=== PATIENT | male | born 1940 | race Caucasian/White ===

== ENCOUNTER 2018-04-22 15:48 | Emergency (ER) | payer OTHER ==
[~2018-04-22] VITALS: Ht 175.3 cm; Wt 104.3 kg
[~2018-04-22 15:48] MED LIST: ASA81 PO; GABA-531 PO; GLU500 PO; INSU100V9 SUBCUT; LISI10TA5 PO
[2018-04-22 16:16] VITALS: BP_SYST 154
[2018-04-22] MEDS ORDERED: HYDROcodone/ACETAMIN 5-325 MG TAB (NORCO/ VICODIN) PO ONE (16:45)
[2018-04-22 17:16] LABS: BASOPHILS # (AUTO) 0.1 K/uL (0.0-0.2); BASOPHILS % (AUTO) 0.6 % (0.0-2.0); EOSINOPHILS # (AUTO) 0.1 K/uL (0.0-0.4); EOSINOPHILS % (AUTO) 0.8 % (0.0-4.0); HEMATOCRIT 42.9 % (36-54); HEMOGLOBIN 13.8 g/dL (14.0-18.0); LYMPHOCYTES # (AUTO) 1.1 K/uL (1.0-5.5); LYMPHOCYTES % (AUTO) 11.5 % (20.5-51.5); MEAN CORPUSCULAR HEMOGLOBIN 30 pg (27-31); MEAN CORPUSCULAR HGB CONC 32 % (32-36); MEAN CORPUSCULAR VOLUME 93 fL (79.0-98.0); MONOCYTES # (AUTO) 0.6 K/uL (0.0-1.0); MONOCYTES % (AUTO) 6.4 % (1.7-9.3); NEUTROPHILS # (AUTO) 8.1 K/uL (1.8-7.7); NEUTROPHILS % (AUTO) 80.7 % (40.0-70.0); PLATELET COUNT (AUTO) 324 K/uL (130-430); RED BLOOD CELL COUNT(AUTO) 4.59 MIL/uL (4.2-6.2); RED CELL DISTRIBUTION WIDTH 13.4 % (9.0-15.0)
[2018-04-22 17:26] LABS: ANION GAP 10 (5-15); CALCIUM 9.2 mg/dL (8.4-11.0); CHLORIDE 95 mmol/L (98-107); CREATININE 1.18 mg/dL (0.55-1.30); GLUCOSE 328 mg/dL (70-99); POTASSIUM 4.5 mmol/L (3.5-5.1); SODIUM SERUM 130 mmol/L (136-145); UREA NITROGEN, BLOOD 24 mg/dL (8-21)
[2018-04-22] MEDS ORDERED: NACL 0.9% 1,000 ML IV ONE (17:30)
[2018-04-22 17:31] LABS: ALANINE AMINOTRANSFERASE 13 U/L (12-78); ALBUMIN 3.5 g/dL (3.4-4.8); ASPARTATE AMINOTRANSFERASE 10 U/L (10-37); TOTAL BILIRUBIN 0.5 mg/dL (0.0-1.0)
[2018-04-22] MEDS ORDERED: CYCLOBENZAPRINE HCL 10 MG TABLET (FLEXERIL) PO ONE (17:45)
[2018-04-22] MEDS ORDERED: IOHEXOL 100 ML IV ONE (18:35)
[2018-04-22 20:05] VITALS: BP_SYST 139
== END 2018-04-22 20:05 | disposition home or self-care (01) ==
LOC: SED 15:48
DX: S16.1XXA Strain of muscle, fascia and tendon at neck level, initial encounter (principal); E11.9 Type 2 diabetes mellitus without complications; Z88.0 Allergy status to penicillin; Z79.899 Other long term (current) drug therapy; X50.9XXA Other and unspecified overexertion or strenuous movements or postures, initial encounter; Y93.89 Activity, other specified; Y92.89 Other specified places as the place of occurrence of the external cause; Y99.8 Other external cause status
CPT/HCPCS: 36415; 70450; 70491; 80053; 82962; 85025; 99284; J7030; Q9967

== ENCOUNTER 2020-05-07 06:13 | Emergency (ER) | payer OTHER, SELFPAY ==
[~2020-05-07] VITALS: Ht 175.3 cm; Wt 104.3 kg
[2020-05-07 06:15] VITALS: BP_SYST 120
--- NOTE | 2020-05-07 06:18 | NUR ---
Patient to ER bed [address] to gown for evaluation. Side rails up. Report given to Matheus WYATT.
--- NOTE | 2020-05-07 06:21 | NUR ---
recieved pt. In [facility] with side rails up. Alert and oriented. Able to make needs known.
--- NOTE | 2020-05-07 07:09 | NUR ---
ER at bedside examining patient.
--- NOTE | 2020-05-07 07:10 | NUR ---
REPORT RECEIVED FROM DELVIN RN FOR CONTINUING CARE
[2020-05-07] MEDS ORDERED: NACL 0.9% 1,000 ML IV ONE (07:15)
--- NOTE | 2020-05-07 07:19 | NUR ---
PT BIBA SQ 64 FROM HOME C/O HIGH BLOOD SUGAR.+GEN WEAKNESS. ACCUCHECK UPON ARRIVAL 346. PT IS AAOX4, V/S STABLE
--- NOTE | 2020-05-07 07:20 | NUR ---
Patient transported to XRAY via WC , accompanied by STAFF.
--- NOTE | 2020-05-07 07:50 | NUR ---
# 20 gauge angiocath placed to LFA. Use of asceptic technique. Opsite placed over site. Blood return noted. Flushed with 10 cc of normal saline. No evidence of infiltration noted. Patient tolerated well.
[2020-05-07] MEDS ORDERED: DIPHENHYDRAMINE INJ 50 MG/ML VIAL IVP ONE (08:00)
[2020-05-07] MEDS ORDERED: methylPREDNISolone SOD SUCC/PF 62.5 MG/ML VIAL IVP ONE (08:00)
[2020-05-07 08:43] LABS: BASOPHILS % (AUTO) 0.3 % (0.0-2.0); EOSINOPHILS # (AUTO) 0.2 K/uL (0.0-0.4); EOSINOPHILS % (AUTO) 1.3 % (0.0-4.0); HEMATOCRIT 39.2 % (36-54); HEMOGLOBIN 13.3 g/dL (14.0-18.0); LYMPHOCYTES # (AUTO) 0.3 K/uL (1.0-5.5); LYMPHOCYTES % (AUTO) 1.8 % (20.5-51.5); MEAN CORPUSCULAR HEMOGLOBIN 31 pg (27-31); MEAN CORPUSCULAR HGB CONC 34 % (32-36); MEAN CORPUSCULAR VOLUME 91 fL (79.0-98.0); MONOCYTES # (AUTO) 0.8 K/uL (0.0-1.0); MONOCYTES % (AUTO) 4.3 % (1.7-9.3); NEUTROPHILS # (AUTO) 16.1 K/uL (1.8-7.7); NEUTROPHILS % (AUTO) 92.3 % (40.0-70.0); PLATELET COUNT (AUTO) 270 K/uL (130-430); RED CELL DISTRIBUTION WIDTH 14.1 % (9.0-15.0); WHITE BLOOD COUNT (AUTO) 17.5 K/uL (4.8-10.8)
[2020-05-07 08:45] LABS: ANION GAP 11 (5-15); CALCIUM 8.8 mg/dL (8.4-11.0); CHLORIDE 97 mmol/L (98-107); CREATININE 2.09 mg/dL (0.55-1.30); GLUCOSE 346 mg/dL (70-99); POTASSIUM 4.4 mmol/L (3.5-5.1); SODIUM SERUM 130 mmol/L (136-145); UREA NITROGEN, BLOOD 52 mg/dL (8-21)
[2020-05-07 08:50] LABS: ALANINE AMINOTRANSFERASE 27 U/L (12-78); ALBUMIN 2.8 g/dL (3.4-4.8); ASPARTATE AMINOTRANSFERASE 26 U/L (10-37); TOTAL BILIRUBIN 0.5 mg/dL (0.0-1.0)
--- NOTE | 2020-05-07 09:19 | NUR ---
ALEKSANDR VEGA (SON) FOR UPDATE . HE WILL BE THE PT'S RIDE IF DC'D
[2020-05-07 09:23] LABS: INR 3.8 (0.80-1.20)
--- NOTE | 2020-05-07 10:15 | NUR ---
Patient resting quietly. No acute distress noted. Vital signs within normal range.
[2020-05-07] MEDS ORDERED: INSULIN REGULAR, HUMAN 10 UNITS/0.1 ML INJ IVP ONE (10:30)
[2020-05-07 10:31] LABS: BILIRUBIN,URINE NEGATIVE (NEGATIVE); BLOOD, URINE NEGATIVE (NEGATIVE); CLARITY/URINE CLEAR (CLEAR); COLOR,URINE YELLOW (YELLOW); GLUCOSE,URINE 2+ (NEGATIVE); KETONES,URINE NEGATIVE (NEGATIVE); LEUKOCYTE ESTERASE ,URINE NEGATIVE (NEGATIVE); NITRITE, URINE NEGATIVE (NEGATIVE); PROTEIN URINE NEGATIVE (NEGATIVE); UROBILINOGEN,URINE 0.2 (0.2-1.0)
[2020-05-07 11:13] LABS: BACTERIA,URINE None Seen /HPF (None Seen); RBC,URINE 0-3 /HPF (0-3); URINE AMORPHOUS URATE 1+ /HPF (None Seen); WBC,URINE 0-3 /HPF (0-3)
--- NOTE | 2020-05-07 11:30 | NUR ---
PT PROVIDED WITH SNACK
[2020-05-07 12:18] LABS: PROTHROMBIN TIME 10.3 SECS (9.5-12.5)
[2020-05-07 12:44] VITALS: BP_SYST 124
--- NOTE | 2020-05-07 12:49 | NUR ---
Patient given written and verbal discharge instructions and verbalizes understanding. ER MD discussed with patient the results and treatment provided. Patient in stable condition. ID arm band removed. IV catheter removed intact and dressing applied, no active bleeding. Rx of LEVAQUIN,PREDNISONE AND ATARAX given. Patient educated on pain management and to follow up with PMD. Pain Scale 0/10. Opportunity for questions provided and answered. Medication side effect fact sheet provided.
== END 2020-05-07 12:49 | disposition home or self-care (01) ==
LOC: SED 06:13
DX: E11.65 Type 2 diabetes mellitus with hyperglycemia (principal); R21 Rash and other nonspecific skin eruption; R53.1 Weakness; I10 Essential (primary) hypertension; Z88.0 Allergy status to penicillin; Z79.899 Other long term (current) drug therapy; Z79.82 Long term (current) use of aspirin; Z20.828 Contact with and (suspected) exposure to other viral communicable diseases
CPT/HCPCS: 36415; 71045; 80053; 81000; 84484; 85025; 85610; 85730; 87040; 87086; 87426; 93005; 96361; 96365; 96372; 96375; 99285; J1200; J1815; J1956; J2930; J7030

== ENCOUNTER 2020-12-08 14:22 | Observation (INO) | payer OTHER, SELFPAY ==
[~2020-12-08] VITALS: Ht 175.3 cm; Wt 99.4 kg
[~2020-12-08 14:22] MED LIST changes: +LISI10TA29 PO; -LISI10TA5 PO
[2020-12-08 14:28] VITALS: BP_SYST 121
[2020-12-08] MEDS ORDERED: LR 1,000 ML IV ONE (14:30)
[2020-12-08] MEDS ORDERED: METOCLOPRAMIDE HCL 10 MG/2 ML VIAL IVP ONE (14:30)
[2020-12-08] MEDS ORDERED: ACETAMINOPHEN I.V. 1000 MG 100 ML IV ONE (15:00)
[2020-12-08] MEDS ORDERED: AZITHROMYCIN 500 MG in NS 250 ML IV ONE (15:00)
[2020-12-08] MEDS ORDERED: MAGNESIUM SULFATE 1 GM/2 ML VIAL IV ONE (15:00)
[2020-12-08] MEDS ORDERED: AZITHROMYCIN 500 MG/VIAL (ZITHROMAX) IV ONE ×2 (15:12)
[2020-12-08] MEDS ORDERED: cefTRIAXone 2 GM VIAL ONE (15:13)
[2020-12-08] MEDS ORDERED: ACETAMINOPHEN 650 MG SUPP.RECT RC ONE (15:15)
[2020-12-08 15:31] LABS: BASOPHILS % (AUTO) 0.3 % (0.0-2.0); EOSINOPHILS % (AUTO) 0.1 % (0.0-4.0); HEMATOCRIT 43.5 % (36-54); HEMOGLOBIN 14.6 g/dL (14.0-18.0); LYMPHOCYTES # (AUTO) 0.6 K/uL (1.0-5.5); LYMPHOCYTES % (AUTO) 3.5 % (20.5-51.5); MEAN CORPUSCULAR HEMOGLOBIN 32 pg (27-31); MEAN CORPUSCULAR HGB CONC 34 % (32-36); MEAN CORPUSCULAR VOLUME 94 fL (79.0-98.0); MONOCYTES # (AUTO) 0.7 K/uL (0.0-1.0); MONOCYTES % (AUTO) 4.4 % (1.7-9.3); NEUTROPHILS % (AUTO) 91.7 % (40.0-70.0); PLATELET COUNT (AUTO) 218 K/uL (130-430); RED BLOOD CELL COUNT(AUTO) 4.64 MIL/uL (4.2-6.2); RED CELL DISTRIBUTION WIDTH 14.2 % (9.0-15.0); WHITE BLOOD COUNT (AUTO) 16.4 K/uL (4.8-10.8)
[2020-12-08 15:35] LABS: INR 0.9 (0.80-1.20); PROTHROMBIN TIME 9.4 SECS (9.5-12.5)
[2020-12-08 15:52] LABS: ANION GAP 11 (5-15); CALCIUM 9.5 mg/dL (8.4-11.0); CHLORIDE 101 mmol/L (98-107); CREATININE 1.25 mg/dL (0.55-1.30); GLUCOSE 194 mg/dL (70-99); POTASSIUM 4.5 mmol/L (3.5-5.1); SODIUM SERUM 135 mmol/L (136-145); UREA NITROGEN, BLOOD 37 mg/dL (8-21)
[2020-12-08 15:53] LABS: ALANINE AMINOTRANSFERASE 23 U/L (12-78); ALBUMIN 3.9 g/dL (3.4-4.8); ASPARTATE AMINOTRANSFERASE 17 U/L (10-37); BILIRUBIN,DIRECT 0.1 mg/dL (0.0-0.3); TOTAL BILIRUBIN 0.6 mg/dL (0.0-1.0)
[2020-12-08 16:03] LABS: LIPASE 54 U/L (73-393)
[2020-12-08 16:04] LABS: BILIRUBIN,URINE NEGATIVE (NEGATIVE); BLOOD, URINE NEGATIVE (NEGATIVE); CLARITY/URINE CLEAR (CLEAR); COLOR,URINE YELLOW (YELLOW); GLUCOSE,URINE NEGATIVE (NEGATIVE); KETONES,URINE NEGATIVE (NEGATIVE); LEUKOCYTE ESTERASE ,URINE NEGATIVE (NEGATIVE); NITRITE, URINE NEGATIVE (NEGATIVE); PROTEIN URINE 1+ (NEGATIVE); UROBILINOGEN,URINE 0.2 (0.2-1.0)
[2020-12-08 16:15] LABS: BACTERIA,URINE FEW /HPF (None Seen); MUCUS,URINE None Seen /LPF (None Seen); RBC,URINE NONE SEEN /HPF (0-3); WBC,URINE 0-3 /HPF (0-3)
[2020-12-08 23:21] VITALS: BP_SYST 145
[2020-12-09] VITALS: BP_SYST 145
[2020-12-09] MEDS ORDERED: HYDROcodone/ACETAMIN 10-325 MG TAB PO PRN (00:15)
[2020-12-09] MEDS ORDERED: ONDANSETRON HCL 4 MG/2 ML VIAL IVP PRN (00:15)
[2020-12-09] MEDS ORDERED: HYDROcodone/ACETAMIN 5-325 MG TAB (NORCO/ VICODIN) PO PRN (00:15)
[2020-12-09] MEDS ORDERED: ACETAMINOPHEN 325 MG TABLET PO PRN (00:15)
[2020-12-09] MEDS ORDERED: NALOXONE HCL 0.4 MG/ML AMP (NARCAN) IVP PRN ×2 (00:15)
[2020-12-09] MEDS ORDERED: LORazepam 2 MG/ML VIAL IVP PRN (00:15)
[2020-12-09] MEDS: NORMAL SALINE 5 ML DISP.SYRIN IVF SCH ×3 (05:37→21:01)
[2020-12-09] MEDS ORDERED: NORMAL SALINE 5 ML DISP.SYRIN IVF SCH (06:00)
[2020-12-09 08:00] VITALS: BP_SYST 130
[2020-12-09] MEDS ORDERED: ASPIRIN 81 MG TAB.CHEW PO SCH (09:00)
[2020-12-09] MEDS ORDERED: cefTRIAXone 1 GM IVPB PREMIX 50 ML IV SCH (09:00)
[2020-12-09] MEDS: GABAPENTIN 300 MG CAPSULE PO SCH ×3 (09:00→20:55)
[2020-12-09] MEDS ORDERED: LISINOPRIL 10 MG TABLET (PRINIVIL) PO SCH (09:00)
[2020-12-09] MEDS: metFORMIN HCL 500 MG TABLET PO SCH ×2 (09:20→17:28)
[2020-12-09] MEDS ORDERED: AZITHROMYCIN 500 MG in NS 250 ML IV SCH (10:00)
[2020-12-09] MEDS ORDERED: METOPROLOL TARTRATE 25 MG TABLET PO ONE (11:00)
[2020-12-09 11:53] LABS: BASOPHILS % (AUTO) 0.3 % (0.0-2.0); EOSINOPHILS % (AUTO) 0.2 % (0.0-4.0); HEMATOCRIT 37.5 % (36-54); HEMOGLOBIN 12.9 g/dL (14.0-18.0); LYMPHOCYTES # (AUTO) 0.5 K/uL (1.0-5.5); LYMPHOCYTES % (AUTO) 4.5 % (20.5-51.5); MEAN CORPUSCULAR HEMOGLOBIN 32 pg (27-31); MEAN CORPUSCULAR HGB CONC 35 % (32-36); MEAN CORPUSCULAR VOLUME 93 fL (79.0-98.0); MONOCYTES # (AUTO) 0.5 K/uL (0.0-1.0); MONOCYTES % (AUTO) 4.5 % (1.7-9.3); NEUTROPHILS # (AUTO) 9.9 K/uL (1.8-7.7); NEUTROPHILS % (AUTO) 90.5 % (40.0-70.0); PLATELET COUNT (AUTO) 192 K/uL (130-430); RED BLOOD CELL COUNT(AUTO) 4.02 MIL/uL (4.2-6.2); RED CELL DISTRIBUTION WIDTH 14.5 % (9.0-15.0); WHITE BLOOD COUNT (AUTO) 10.9 K/uL (4.8-10.8)
[2020-12-09] MEDS ORDERED: METO25TA6 PO (12:12)
[2020-12-09 12:20] VITALS: BP_SYST 104
[2020-12-09 20:17] VITALS: BP_SYST 120
[2020-12-09 20:22] VITALS: BP_SYST 120
[2020-12-09] MEDS ORDERED: METOPROLOL TARTRATE 25 MG TABLET PO SCH (21:00)
[2020-12-09] MEDS ORDERED: INSULIN GLARGINE 100 UNITS/ML 10 ML VIAL SUBCUT SCH (21:00)
== END 2020-12-09 21:55 | disposition home or self-care (01) ==
LOC: SED 14:22 → INTOOBSV 16:42 → STU 16:42
PROVIDERS: ADMIT Preventive Medicine Preventive Medicine/Occupational Environmental Medicine; ATTEND Preventive Medicine Preventive Medicine/Occupational Environmental Medicine
DX: J96.01 Acute respiratory failure with hypoxia (principal); Z20.822 Contact with and (suspected) exposure to COVID-19; J18.9 Pneumonia, unspecified organism; I48.91 Unspecified atrial fibrillation; R11.2 Nausea with vomiting, unspecified; R50.9 Fever, unspecified; D72.829 Elevated white blood cell count, unspecified; E87.1 Hypo-osmolality and hyponatremia; R79.89 Other specified abnormal findings of blood chemistry; E11.65 Type 2 diabetes mellitus with hyperglycemia; I10 Essential (primary) hypertension; R00.0 Tachycardia, unspecified; S81.801A Unspecified open wound, right lower leg, initial encounter; X58.XXXA Exposure to other specified factors, initial encounter; Y93.89 Activity, other specified; Y92.89 Other specified places as the place of occurrence of the external cause; Z88.0 Allergy status to penicillin; Z79.82 Long term (current) use of aspirin; Z79.899 Other long term (current) drug therapy
CPT/HCPCS: 36415 ×2; 36600; 70450; 71045; 74176; 76376; 80048; 80076; 81000; 82140; 82803; 82962; 83605; 83690; 83880; 84484 ×2; 85025 ×2; 85610; 85730; 87040; 87426; 93005; 93306; 96365; 96366; 96367; 96368; 96375; 99291; G0378; J0456 ×2; J0696 ×2; J1815; J2765; J3475; J7050; J0131